=== PATIENT | female | born 1980 ===

== ENCOUNTER 2017-07-20 05:03 | Emergency (ER) | payer SELFPAY ==
[2017-07-20 05:03] VITALS: BMI 36.6
[2017-07-20 05:20] VITALS: RESP 18
[2017-07-20 05:37] LABS: HCG,QUALITATIVE URINE NEGATIVE (NEGATIVE)
[2017-07-20 05:42] LABS: SQUAMOUS EPITHIAL 1 /hpf (0-5); URINE BILIRUBIN NEGATIVE (NEGATIVE); URINE BLOOD 3+ (NEGATIVE); URINE CLARITY Hazy (Clear); URINE COLOR Yellow (YELLOW); URINE GLUCOSE (UA) NORMAL (Normal); URINE LEUKOCYTE ESTERASE 3+ Leu/uL (Negative); URINE NITRATE NEGATIVE (NEGATIVE); URINE PROTEIN 2+ mg/dL (NEGATIVE); URINE UROBILINOGEN NORMAL mg/dL (0.2-1.0)
--- NOTE | 2017-07-20 05:42 | C.PDOC ---
History Of Present Illness 36 year old female presents to the ER with a complaint of suprapubic pain, dysuria, urinary frequency, and blood tinged urine for the past 4 days. She admits to history of prior UTIs/similar symptoms. Patient denies fever, nausea , vomiting, diarrhea, flank pain, or vaginal discharge. Time Seen by Provider: 07/20/17 05:05 Chief Complaint (Nursing): Female Genitourinary History Per: Patient History/Exam Limitations: no limitations Onset/Duration Of Symptoms: Days Current Symptoms Are (Timing): Still Present Severity: Moderate Location Of Pain/Discomfort: Suprapubic Radiation Of Pain To:: None Quality Of Discomfort: Burning Associated Symptoms: Urinary Symptoms. denies: Fever, Chills, Nausea, Vomiting , Diarrhea, Other (Flank pain, vaginal discharge) Exacerbating Factors: None Alleviating Factors: None Abnormal Vaginal Bleeding: No Past Medical History Reviewed: Historical Data, Nursing Documentation, Vital Signs Vital Signs: Last Vital Signs Temp 97.8 F 07/20/17 06:00 Pulse 70 07/20/17 06:00 Resp 18 07/20/17 06:00 BP 129/87 07/20/17 06:00 Pulse Ox 98 07/20/17 06:00 - Medical History PMH: Bronchitis, HTN (Not on meds) Surgical History: Appendectomy (2010) - [facility] Procedures DILATION OF LEFT URETER WITH INTRALUMINAL DEVICE, ENDO (07/08/16) FLUOROSCOPY KIDNEY, URETER, BLADDER, L W L OSM CONTRAST (07/08/16) Family History: States: No Known Family Hx - Social History Hx Tobacco Use: No Hx Alcohol Use: No Hx Substance Use: No - Immunization History Hx Tetanus Toxoid Vaccination: No Hx Influenza Vaccination: No Hx Pneumococcal Vaccination: No Review Of Systems Except As Marked, All Systems Reviewed And Found Negative. Constitutional: Negative for: Fever, Chills Cardiovascular: Negative for: Chest Pain Respiratory: Negative for: Shortness of Breath Gastrointestinal: Positive for: Abdominal Pain. Negative for: Nausea, Vomiting , Diarrhea Genitourinary: Positive for: Dysuria, Frequency, Hematuria. Negative for: Vaginal Discharge, Vaginal Bleeding Physical Exam - Physical Exam Appears: Well, Non-toxic, No Acute Distress Skin: Normal Color, Warm, Dry Eye(s): bilateral: Normal Inspection Oral Mucosa: Moist Cardiovascular: Rhythm Regular Respiratory: Normal Breath Sounds, No Rales, No Rhonchi, No Wheezing Gastrointestinal/Abdominal: Normal Exam, Bowel Sounds, Soft, No Tenderness Back: No CVA Tenderness Neurological/Psych: Oriented x3 ED Course And Treatment O2 Sat by Pulse Oximetry: 97 (Room air) Pulse Ox Interpretation: Normal Progress Note: Urinalysis ordered and reviewed. Patient given PO Tylenol. UA ( +) for UTI, Ucx sent and patient given PO Macrobid and Pyridium. Rxs given for same. Patient instructed to follow up with PMD in 1-2 days, and understands she should return to ED if symptoms worsen. Reevaluation Time: 05:50 Reassessment Condition: Improved Disposition Counseled Patient/Family Regarding: Studies Performed, Diagnosis, Need For Followup, Rx Given - Disposition Referrals: [facility] [Outside] Disposition: HOME/ ROUTINE Disposition Time: 05:50 Condition: STABLE Additional Instructions: SEGUIMIENTO CON ELLIS MDICO EN 1-2 RIVERS USE MEDICAMENTOS SEGN LO INDICADO BEBER MUCHO LQUIDO REGRESE AL DIONNE DE EMERGENCIA SI LOS SNTOMAS EMPEORAN Prescriptions: Nitrofurantoin Macrocrystals [Macrobid] 1 cap PO BID #14 cap Phenazopyridine [Pyridium] 100 mg PO TID #9 tab Instructions: Urinary Tract Infection in Women (ED) Forms: [facility] (Indonesian) Print Language: TUNISIAN - Clinical Impression Clinical Impression: UTI (urinary tract infection) - Scribe Statement The provider has reviewed the documentation as recorded by the Scribe Hemant Muniz All medical record entries made by the Scribe were at my direction and personally dictated by me. I have reviewed the chart and agree that the record accurately reflects my personal performance of the history, physical exam, medical decision making, and the department course for this patient. I have also personally directed, reviewed, and agree with the discharge instructions and disposition.
[2017-07-20 06:01] VITALS: BP 129/87; PULSE 70; TEMP 97.8
[2017-07-22 10:47] VITALS: O2SAT 97
== END 2017-07-20 06:06 | disposition home or self-care (01) ==
LOC: C.ER 05:03
DX: N39.0 Urinary tract infection, site not specified (principal); I10 Essential (primary) hypertension

== ENCOUNTER 2017-09-29 21:35 | Emergency (ER) | payer SELFPAY ==
[2017-09-29 21:35] VITALS: BMI 36.6
[2017-09-29 21:51] VITALS: O2SAT 99
[2017-09-29 22:29] LABS: SQUAMOUS EPITHIAL 4 /hpf (0-5); URINE BACTERIA OCC (<OCC); URINE BILIRUBIN NEGATIVE (NEGATIVE); URINE BLOOD 3+ (NEGATIVE); URINE CLARITY Hazy (Clear); URINE COLOR Yellow (YELLOW); URINE GLUCOSE (UA) 3+ mg/dL (Normal); URINE LEUKOCYTE ESTERASE NEG Leu/uL (Negative); URINE PROTEIN NEGATIVE (NEGATIVE); URINE UROBILINOGEN NORMAL mg/dL (0.2-1.0)
--- NOTE | 2017-09-29 23:56 | US ---
EXAM: US , Transvaginal EXAM DATE/TIME: 09/29/2017 10:34 PM CLINICAL HISTORY: 36 years old, female; Pain; complicated by abdominal or pelvic pain; Lower; First trimester; Gestational age or lmp: 08/12/17; ; Patient HX: Vag bleeding; Additional info: Patient is preg. Bed 7 TECHNIQUE: Real-time transvaginal obstetrical ultrasound of the maternal pelvis and a first trimester with image documentation. Transvaginal imaging was used for better evaluation of the fetus and adnexa. COMPARISON: There are no prior studies for comparison. FINDINGS: Gestation:There is a tiny cystic structure in the endometrium, approximately 2 mm in diameter. Uterus/cervix: Uterus measures approximately 9 x 4.7 by 5.2 cm. There are nabothian cysts in the cervix. Endometrium is thickened, 19 mm in width. Ovaries: Right ovary measures approximately 2.2 x 1.9 x 2 cm.There is expected blood flow on Doppler imaging Left ovary measures approximately 3 x 2.2 x 2.6 cm.There are multiple small follicles. There is intraovarian blood flow. Free fluid: There is no free fluid. IMPRESSION: Tiny cystic structure in the endometrial canal possibly very early intrauterine gestation; normal-appearing ovaries, no free fluid, no ectopic gestation identified Correlation with beta-hCG level and followup sonography advised to document development of an intrauterine gestation
[2017-09-30 00:14] LABS: BASO # 0.1 K/uL (0.0-0.2); BASO % 0.6 % (0.0-2.0); EOS % 0.4 % (0.0-4.0); HEMOGLOBIN 12.2 g/dL (11.0-16.0); LYMPH # 2.3 K/uL (1.0-4.3); LYMPH % 22.2 % (20.0-40.0); MEAN CELL VOLUME 90.6 fL (81.0-99.0); MEAN CORPUSCULAR HEMOGLOBIN 30.3 pg (27.0-31.0); MEAN CORPUSCULAR HGB CONC 33.5 g/dL (33.0-37.0); MEAN PLATELET VOLUME 7.2 fL (7.2-11.7); MONO # 0.7 K/uL (0.0-0.8); NEUT # 7.2 K/uL (1.8-7.0); NEUT % 69.8 % (50.0-75.0); RBC 4.03 Mil/uL (3.80-5.20); RED CELL DISTRIBUTION WIDTH 14.4 % (11.5-14.5); WHITE BLOOD COUNT 10.3 K/uL (4.8-10.8)
--- NOTE | 2017-09-30 00:36 | C.PDOC ---
Time Seen by Provider: 09/29/17 22:15 Chief Complaint (Nursing): Abdominal Pain Past Medical History Vital Signs: Last Vital Signs Temp 98.4 F 09/29/17 21:48 Pulse 87 09/29/17 21:48 Resp 17 09/29/17 21:48 BP 147/93 H 09/29/17 21:48 Pulse Ox 99 09/30/17 00:36 - Medical History PMH: Bronchitis, HTN (Not on meds) Denies: Chronic Kidney Disease Surgical History: Appendectomy (2010) - [facility] Procedures DILATION OF LEFT URETER WITH INTRALUMINAL DEVICE, ENDO (07/08/16) FLUOROSCOPY KIDNEY, URETER, BLADDER, L W L OSM CONTRAST (07/08/16) Family History: States: Unknown Family Hx - Social History Hx Tobacco Use: No Hx Alcohol Use: Yes Hx Substance Use: No - Immunization History Hx Tetanus Toxoid Vaccination: No Hx Influenza Vaccination: No Hx Pneumococcal Vaccination: No ED Course And Treatment - Laboratory Results Result Diagrams: 09/30/17 00:11 O2 Sat by Pulse Oximetry: 99 Medical Decision Making Medical Decision Makin: pending labs US c/w early IUP, no ectopic. need to correlate with labs Disposition - Disposition Referrals: Non [facility] Provider, [Primary Care Provider] - Disposition Time: 01:00 Condition: GOOD Forms: [facility] (Sami) - Clinical Impression Clinical Impression: Threatened Physician Patient Turnover Patient Signed Over To: Kian Hurtado Handoff Comments: pending labs. consider early threatened AB
--- NOTE | 2017-09-30 00:39 | C.PDOC ---
History Of Present Illness 36 y/o female presents to the ER complaining of left adnexal pain and vaginal bleeding. Patient reports having a positive home test 3 weeks ago. No prior US during this . Denies any dizziness, SOB, nausea, vomiting, or other complaint at this time. Time Seen by Provider: 09/29/17 22:15 Chief Complaint (Nursing): Abdominal Pain History Per: Patient History/Exam Limitations: no limitations Onset/Duration Of Symptoms: Days Current Symptoms Are (Timing): Still Present Abnormal Vaginal Bleeding: Yes Past Medical History Reviewed: Historical Data, Nursing Documentation, Vital Signs Vital Signs: Last Vital Signs Temp 98.4 F 09/29/17 21:48 Pulse 87 09/29/17 21:48 Resp 17 09/29/17 21:48 BP 147/93 H 09/29/17 21:48 Pulse Ox 99 09/30/17 01:00 - Medical History PMH: Bronchitis, HTN (Not on meds) Denies: Chronic Kidney Disease Surgical History: Appendectomy (2010) - [facility] Procedures DILATION OF LEFT URETER WITH INTRALUMINAL DEVICE, ENDO (07/08/16) FLUOROSCOPY KIDNEY, URETER, BLADDER, L W L OSM CONTRAST (07/08/16) Family History: States: Unknown Family Hx - Social History Hx Tobacco Use: No Hx Alcohol Use: Yes Hx Substance Use: No - Immunization History Hx Tetanus Toxoid Vaccination: No Hx Influenza Vaccination: No Hx Pneumococcal Vaccination: No Review Of Systems Except As Marked, All Systems Reviewed And Found Negative. Respiratory: Negative for: Shortness of Breath Gastrointestinal: Negative for: Nausea, Vomiting Genitourinary: Positive for: Vaginal Bleeding, Other (L adnexal pain). Negative for: Vaginal Discharge Neurological: Negative for: Dizziness Physical Exam - Physical Exam Appears: Non-toxic, No Acute Distress Skin: Normal Color, Warm, Dry Head: Atraumatic, Normacephalic Eye(s): bilateral: Normal Inspection, PERRL, EOMI Nose: Normal Oral Mucosa: Moist Neck: Normal ROM, Supple Chest: Symmetrical Cardiovascular: Rhythm Regular, No Murmur Respiratory: Normal Breath Sounds, No Accessory Muscle Use Gastrointestinal/Abdominal: Soft, Tenderness (Left adnexal tenderness), Other ( Obese, large panniculus) Extremity: Bilateral: Atraumatic, Normal Color And Temperature, Normal ROM Neurological/Psych: Oriented x3, Normal Speech ED Course And Treatment - Laboratory Results Result Diagrams: 09/30/17 00:11 09/30/17 00:11 Lab Interpretation: Normal (A+, QHCG 82) Urine POC: Positive O2 Sat by Pulse Oximetry: 99 (RA) Pulse Ox Interpretation: Normal - CT Scan/US Transvaginal US Other Rad Studies (CT/US): Read By Radiologist, Radiology Report Reviewed CT/US Interpretation: IMPRESSION: Tiny cystic structure in the endometrial canal possibly very early intrauterine gestation;. normal-appearing ovaries, no free fluid, no ectopic gestation identified. Correlation with beta-hCG level and followup sonography advised to document development of an. intrauterine gestation Medical Decision Making Medical Decision Making: Time: 22:54 Initial Plan: * Blood type and screen * Beta-HCG, quantitative * CMP * CBC * Urinalysis * Urine preg * US OB Transvaginal pending Labs reviewed: urine shows (+) occult bacteria. Still pending beta quant 0045: low quant ? missed AB vs very early preg Disposition Counseled Patient/Family Regarding: Studies Performed, Diagnosis, Need For Followup - Disposition Referrals: Non [facility] Provider, [Primary Care Provider] - Disposition: HOME/ ROUTINE Disposition Time: 01:00 Condition: GOOD Additional Instructions: Regressa en 3 valdes para repetir la QHCG (hormona de embarasso) QHCG 83 (mu[place]) Blood O+ Instructions: Threatened Miscarriage Forms: [facility] (Sami) Print Language: SERBIAN - Clinical Impression Clinical Impression: Threatened - Scribe Statement The provider has reviewed the documentation as recorded by the Scribe (Saray Bethea) Provider Attestation: All medical record entries made by the Scribe were at my direction and personally dictated by me. I have reviewed the chart and agree that the record accurately reflects my personal performance of the history, physical exam, medical decision making, and the department course for this patient. I have also personally directed, reviewed, and agree with the discharge instructions and disposition.
[2017-09-30 00:52] LABS: ALB/GLOB RATIO 1.3 (1.0-2.1); ALBUMIN 3.8 g/dL (3.5-5.0); ALT/SGPT 25 U/L (9-52); AST/SGOT 18 U/L (14-36); BLOOD UREA NITROGEN 8 mg/dL (7-17); CALCIUM 8.9 mg/dl (8.6-10.4); GFR AFRICAN-AMERICAN > 60; GFR NON-AFRICAN AMERICAN > 60
[2017-09-30 01:15] VITALS: BP 118/73; PULSE 88; RESP 18; TEMP 98.5
== END 2017-09-30 01:15 | disposition home or self-care (01) ==
LOC: C.ER 21:35 → SUPCPDRO 21:35 → C.ER 09-30 01:15
DX: O20.0 Threatened abortion (principal)

== ENCOUNTER 2017-12-29 00:46 | Emergency (ER) | payer SELFPAY ==
[2017-12-29 00:47] VITALS: BMI 42.9
[2017-12-29 01:07] VITALS: O2SAT 100
[2017-12-29] MEDS ORDERED: Sodium Chloride 0.9% 1,000 ML IV ONE (01:41)
[2017-12-29 01:52] LABS: BASO % 0.4 % (0.0-2.0); EOS # 0.1 K/uL (0.0-0.7); EOS % 0.5 % (0.0-4.0); HEMOGLOBIN 12.7 g/dL (11.0-16.0); LYMPH # 1.8 K/uL (1.0-4.3); LYMPH % 17.2 % (20.0-40.0); MEAN CELL VOLUME 90.2 fL (81.0-99.0); MEAN CORPUSCULAR HEMOGLOBIN 30.2 pg (27.0-31.0); MEAN CORPUSCULAR HGB CONC 33.4 g/dL (33.0-37.0); MEAN PLATELET VOLUME 7.1 fL (7.2-11.7); MONO # 0.6 K/uL (0.0-0.8); MONO % 5.9 % (0.0-10.0); RBC 4.23 Mil/uL (3.80-5.20); RED CELL DISTRIBUTION WIDTH 14.2 % (11.5-14.5); WHITE BLOOD COUNT 10.6 K/uL (4.8-10.8)
[2017-12-29 01:55] LABS: HCG,QUALITATIVE URINE POSITIVE (NEGATIVE)
[2017-12-29 02:02] LABS: SQUAMOUS EPITHIAL 3 /hpf (0-5); URINE BACTERIA RARE (<OCC); URINE BILIRUBIN NEGATIVE (NEGATIVE); URINE BLOOD 1+ (NEGATIVE); URINE CLARITY Clear (Clear); URINE COLOR Straw (YELLOW); URINE GLUCOSE (UA) NORMAL (Normal); URINE LEUKOCYTE ESTERASE TRACE Leu/uL (Negative); URINE PROTEIN NEGATIVE (NEGATIVE); URINE UROBILINOGEN NORMAL mg/dL (0.2-1.0)
[2017-12-29] MEDS ORDERED: Sodium Chloride 0.9% 1,000 ML ONE (02:06)
[2017-12-29 02:11] LABS: GFR AFRICAN-AMERICAN > 60; GFR NON-AFRICAN AMERICAN > 60
[2017-12-29 02:38] LABS: ALBUMIN 4.2 g/dL (3.5-5.0); ALT/SGPT 24 U/L (9-52); AST/SGOT 23 U/L (14-36); BLOOD UREA NITROGEN 10 mg/dL (7-17); CALCIUM 9.1 mg/dl (8.6-10.4)
[2017-12-29 02:58] LABS: ALB/GLOB RATIO 1.2 (1.0-2.1)
--- NOTE | 2017-12-29 04:37 | US ---
EXAM: US Retroperitoneal Limited, Renal CLINICAL HISTORY: 37 years old, female; Pain; Other: Lt pelvic; ; Additional info: Left sided pain. R/O hydronephrosis TECHNIQUE: Real-time ultrasound of the retroperitoneum (limited) with image documentation. COMPARISON: No relevant prior studies available. FINDINGS: Aorta: Unremarkable. No aneurysm. Right kidney: Normal echogenicity. No mass. No calculi. No hydronephrosis. Left kidney: Normal echogenicity. No mass. No calculi. No hydronephrosis. Bladder: Incomplete distention, limiting evaluation. IMPRESSION: 1.No acute findings.
--- NOTE | 2017-12-29 04:39 | US ---
EXAM: US First Trimester, Transabdominal US , Transvaginal CLINICAL HISTORY: 37 years old, female; Pain; complicated by abdominal or pelvic pain; Left lower quadrant; First trimester; Gestational age or lmp: 11/08/17; ; Additional info: Llq pain. R/O ectopic TECHNIQUE: Real-time transabdominal and transvaginal obstetrical ultrasound of the maternal pelvis and a first trimester with image documentation. Transvaginal imaging was used for better evaluation of the fetus and adnexa. COMPARISON: No relevant prior studies available. FINDINGS: Gestation: Gestational sac. Yolk sac. No pole. Mean sac diameter of 0.9 cm, out of range. Uterus/cervix: No subchorionic hemorrhage. Closed cervix. Probable nabothian cyst. Ovaries: RIGHT ovary: 5.0 x 4.1 x 5.1 cm anechoic lesion. LEFT ovary: Normal. No adnexal masses. Free fluid: No significant free fluid. IMPRESSION: 1. Intrauterine , of uncertain viability. Recommend followup. 2. RIGHT ovarian cyst.
--- NOTE | 2017-12-29 04:49 | C.PDOC ---
Time Seen by Provider: 12/29/17 01:36 Chief Complaint (Nursing): Abdominal Pain History Per: Patient, [employer] History/Exam Limitations: language barrier Onset/Duration Of Symptoms: Hrs (tonight) Current Symptoms Are (Timing): Still Present Severity: Moderate Location Of Pain/Discomfort: LLQ Quality Of Discomfort: "Pain" Alleviating Factors: None Additional History Per: Prior Records Abnormal Vaginal Bleeding: No Last Menstral Period: 11/08/2017 Past Medical History Reviewed: Historical Data, Nursing Documentation, Vital Signs Vital Signs: Last Vital Signs Temp 99.6 F 12/29/17 01:01 Pulse 91 H 12/29/17 01:01 Resp 18 12/29/17 01:01 BP 160/94 H 12/29/17 01:01 Pulse Ox 100 12/29/17 01:01 - Medical History PMH: Bronchitis, Kidney Stones Surgical History: Appendectomy (2010) - [facility] Procedures DILATION OF LEFT URETER WITH INTRALUMINAL DEVICE, ENDO (07/08/16) FLUOROSCOPY KIDNEY, URETER, BLADDER, L W L OSM CONTRAST (07/08/16) Family History: States: Unknown Family Hx - Social History Hx Tobacco Use: No Hx Alcohol Use: Yes Hx Substance Use: No - Immunization History Hx Tetanus Toxoid Vaccination: No Hx Influenza Vaccination: No Hx Pneumococcal Vaccination: No Review Of Systems Except As Marked, All Systems Reviewed And Found Negative. Constitutional: Negative for: Fever, Weakness Cardiovascular: Negative for: Chest Pain Respiratory: Negative for: Shortness of Breath Gastrointestinal: Negative for: Vomiting, Diarrhea Genitourinary: Negative for: Dysuria, Vaginal Discharge, Vaginal Bleeding Musculoskeletal: Negative for: Neck Pain Skin: Negative for: Rash Neurological: Negative for: Weakness, Numbness Physical Exam - Physical Exam Appears: Non-toxic, No Acute Distress Skin: Normal Color, Warm, Dry, No Rash Head: Atraumatic, Normacephalic Eye(s): bilateral: Normal Inspection, PERRL, EOMI Neck: Normal ROM, Supple Cardiovascular: Rhythm Regular Respiratory: Normal Breath Sounds, No Accessory Muscle Use Gastrointestinal/Abdominal: Soft, Tenderness (LLQ), No Guarding, No Rebound Back: No CVA Tenderness Extremity: Normal ROM Neurological/Psych: Oriented x3, Normal Motor, Normal Sensation ED Course And Treatment - Laboratory Results Result Diagrams: 12/29/17 01:49 12/29/17 01:49 Lab Interpretation: No Acute Changes Urine POC: Positive O2 Sat by Pulse Oximetry: 100 Pulse Ox Interpretation: Normal - CT Scan/US Renal US Other Rad Studies (CT/US): Read By Radiologist, Radiology Report Reviewed CT/US Interpretation: IMPRESSION: 1. No acute findings. Pelvic US Other Rad Studies (CT/US): Read By Radiologist, Radiology Report Reviewed CT/US Interpretation: IMPRESSION: 1. Intrauterine , of uncertain viability. Recommend followup. 2. RIGHT ovarian cyst. Progress - Interventions Interventions:: Observation, Intravenous fluid - Medications Administered Oral: Acetaminophen - Data Reviewed Data Reviewed: Lab, Diagnostic imaging, Old records - Patient Status Patient status: Mostly improved - Continuity of Care Discussed patient case with:: Patient, Family-HIPPA compliant, ED Nurse - Patient Plan Patient Plan: Discharge, F/U with PCP Disposition Counseled Patient/Family Regarding: Studies Performed, Diagnosis, Need For Followup, Rx Given - Disposition Disposition: HOME/ ROUTINE Disposition Time: 04:49 Condition: STABLE Additional Instructions: Drink plenty of fluids. Follow up with your [facility] doctor for further evaluation and treatment. Return to the ER if you develop fever, vomiting, vaginal bleeding or discharge, worsening of symptoms or if you have any other concerns. Prescriptions: Acetaminophen [Tylenol Extra Strength] 2 tab PO Q6 PRN #30 tablet PRN Reason: Pain, Moderate (4-7) Vit Calc,Iron,Folic [ Vitamins] 1 tab PO DAILY #30 tablet Forms: Gen Discharge Inst Burundian Print Language: LUXEMBOURGISH - Clinical Impression Clinical Impression: LLQ pain, at early stage, Right ovarian cyst
[2017-12-29 05:13] VITALS: BP 131/70; PULSE 81; RESP 20; TEMP 98.1
== END 2017-12-29 05:13 | disposition home or self-care (01) ==
LOC: C.ER 00:46
DX: O34.81 Maternal care for other abnormalities of pelvic organs, first trimester (principal); N83.201 Unspecified ovarian cyst, right side; R10.32 Left lower quadrant pain; Z3A.00 Weeks of gestation of pregnancy not specified
CPT/HCPCS: 76770; 76805; 76817; 80053; 81001; 84702; 84703; 85025; 96360; 99285; J7030